=== PATIENT | male | born 1975 | race Caucasian/White ===

== ENCOUNTER 2024-04-21 06:51 | Outpatient (CLI) | payer OTHER | END 2024-04-21 19:55 | disposition home or self-care (01) | LOC: SNM 06:51 | PROVIDERS: ATTEND Podiatrist Foot & Ankle Surgery | DX: S92.101A Unspecified fracture of right talus, initial encounter for closed fracture (principal); M25.571 Pain in right ankle and joints of right foot; X58.XXXA Exposure to other specified factors, initial encounter; Y93.89 Activity, other specified; Y92.89 Other specified places as the place of occurrence of the external cause; Y99.8 Other external cause status | CPT/HCPCS: 78315; A9503 ==